=== PATIENT | male | born 1975 | race Caucasian/White ===

== ENCOUNTER → 2016-11-25 | Outpatient (CLI) | payer OTHER, BC ==
--- NOTE | 2016-11-26 08:28 | DI ---
Indication: ITS.REASON: M25.512 LEFT SHOULDER PAIN PROCEDURE: MRI SHOULDER LEFT W/O CONTRAST: Encounter: Initial Comparison: None Technique: Multiplanar multisequence MR imaging of the left shoulder was performed without contrast. Findings: The long head biceps tendon is intact and located within the bicipital groove. Subscapularis tendon is normal. The supraspinatus tendon shows a small amount of edema in the anterior proximal aspect without discrete tear. The infraspinatus and teres minor tendons are normal. No acute fracture. Acromioclavicular joint is maintained. No fluid in the subacromial subdeltoid bursa. Possible tiny superior labral tear at 12:00. Muscular bulk and signal intensity is normal. Impression: 1. Supraspinatus tendinopathy or strain without discrete tear. 2. Possible tiny superior labral tear. .
== END ==
LOC: IMA 18:09
PROVIDERS: ATTEND Physician Assistant
DX: R60.0 Localized edema (principal); R93.7 Abnormal findings on diagnostic imaging of other parts of musculoskeletal system; M25.512 Pain in left shoulder